=== PATIENT | female | born 1985 | race Hispanic/Latino ===

== ENCOUNTER 2021-11-19 13:35 | Emergency (ER) | payer SELFPAY ==
[2021-11-19] MEDS ORDERED: Acetaminophen 500 MG TAB ONE (14:07)
[2021-11-19 14:17] LABS: Bilirubin Neg (Negative); Blood, Urine 250 (Negative); Clarity Clear (Clear); Glucose, Urine (Dipstick) Normal (Negative); Ketone, Urine 15 mg/dL (Negative); Leukocyte 500 (Negative); Nitrite Negative (Negative); Protein, Urine (Dipstick) 15 mg/dl (Neg-Trace); Specific Gravity, Urine 1.015 (1.002-1.036); Urobilinogen Normal mg/dL (Less than 2)
[2021-11-19 14:47] LABS: Transitional Epithelial 0-3 HPF (None Seen)
[2021-11-19 14:48] LABS: Bacteria/HPF 1+ HPF (None Seen); Mucous/LPF 2+ LPF (<2+)
== END 2021-11-19 15:59 | disposition home or self-care (01) ==
LOC: CSHERS 13:35
DX: O23.41 Unspecified infection of urinary tract in pregnancy, first trimester (principal); N39.0 Urinary tract infection, site not specified; O99.281 Endocrine, nutritional and metabolic diseases complicating pregnancy, first trimester; E05.90 Thyrotoxicosis, unspecified without thyrotoxic crisis or storm; Z3A.01 Less than 8 weeks gestation of pregnancy
CPT/HCPCS: 36415; 81003; 81015; 84702; 86900; 86901

== ENCOUNTER 2022-07-10 09:21 | Inpatient (IN) | payer MEDICAID, SELFPAY ==
[2022-07-10] MEDS ORDERED: Oxytocin 10 UNITS/ML VIAL ONE (09:30)
[2022-07-10] MEDS ORDERED: Methylergonovine 0.2 MG/ML VIAL ONE (09:31)
[2022-07-10] MEDS ORDERED: Misoprostol 200 MCG TAB ONE (09:31)
[2022-07-10] MEDS ORDERED: Carboprost 250 MCG/ML AMP ONE (09:31)
[2022-07-10] MEDS ORDERED: NS w/ Oxytocin 30 units 500 ML ONE (09:57)
[2022-07-10] MEDS ORDERED: Diphenoxylate HCl/Atropine Tablet PO PRN (10:07)
[2022-07-10] MEDS ORDERED: Ondansetron PF 4 MG/2 ML Vial IVP PRN (10:07)
[2022-07-10] MEDS ORDERED: Misoprostol 200 MCG TAB PR PRN (10:07)
[2022-07-10] MEDS ORDERED: hydrALAZINE 20 MG/ML VIAL SLOW IVP PRN ×2 (10:07→11:04)
[2022-07-10] MEDS ORDERED: Lidocaine 1% (PF) 30 ML VIAL SC PRN (10:07)
[2022-07-10] MEDS ORDERED: Methylergonovine 0.2 MG/ML VIAL IM PRN (10:07)
[2022-07-10] MEDS ORDERED: Promethazine HCl 25 MG/ML VIAL IM PRN (10:07)
[2022-07-10] MEDS ORDERED: NS w/ Oxytocin 30 units 500 ML IV SCH (10:15)
[2022-07-10] MEDS ORDERED: Lactated Ringer's 1,000 ML IV SCH (10:15)
[2022-07-10 10:23] LABS: Hemoglobin 11.7 g/dL (12.0-15.5); Mean Corpuscular HGB CONC 33.8 g/dL (32.0-36.0); Mean Corpuscular Hemoglobin 27.6 pg (27.0-33.0); Mean Corpuscular Volume 81.6 fl (81.6-98.3); Mean Platelet Volume 12.2 fl (7.4-10.4); Platelet Count 196 10x3/uL (150-450); RBC Distribution Width 15.4 % (11.5-14.5); Red Blood Cell (RBC) Count 4.24 10x6/uL (3.90-5.03); White Blood Cell (WBC) Count 15.3 10x3/uL (3.5-10.5)
[2022-07-10] MEDS ORDERED: Lidocaine 1% (PF) 30 ML VIAL ONE (10:37)
[2022-07-10 10:54] LABS: HBSAg Index 0.16 S/CO (0-0.99); Hep B Surf Ag Non-Reactive S/CO (NonReactive)
[2022-07-10 10:55] LABS: Syphilis Antibody Nonreactive (Nonreactive); Syphilis Antibody Index 0.03 S/CO (<1.00 Non-Reactive)
[2022-07-10] MEDS ORDERED: Boostrix 0.5 ML (Tdap) VIAL (>/=7 yrs of age) IM ONE (11:04)
[2022-07-10] MEDS ORDERED: Bisacodyl 10 MG SUPP PR PRN (11:04)
[2022-07-10] MEDS ORDERED: Milk Of Magnesia 30 ML UDCUP PO PRN (11:04)
[2022-07-10 11:30] VITALS: BMI 32.0
[2022-07-10] MEDS: Acetaminophen 500 MG TAB PO PRN (11:49)
[2022-07-10 11:50] LABS: SARS-CoV-2 NAA Rapid Test Not Detected (NotDetected)
[2022-07-10] MEDS: Ibuprofen 800 MG TAB PO SCH ×2 (14:37→21:54)
[2022-07-10] MEDS: Ferrous Sulfate 325 MG TAB PO SCH (16:23)
[2022-07-10] MEDS: Docusate 100 MG CAP PO SCH (21:54)
[2022-07-11] MEDS: Acetaminophen 500 MG TAB PO PRN (00:30)
[2022-07-11 04:18] LABS: #Eosinphils 0.1 10x3/uL (0.0-0.5); #Monocytes 0.8 10x3/uL (0.0-1.1); #Neutrophils 7.8 10x3/uL (1.5-8.4); %Basophils 0.2 % (0.0-2.0); %Eosinophils 0.9 % (0.0-6.0); %Lymphocytes 24.8 % (18.0-47.0); %Monocytes 6.4 % (0.0-10.0); %Neutrophils 66.8 % (40.0-75.0); Hemoglobin 9.3 g/dL (12.0-15.5); Mean Corpuscular HGB CONC 33.5 g/dL (32.0-36.0); Mean Corpuscular Hemoglobin 27.4 pg (27.0-33.0); Mean Platelet Volume 11.8 fl (7.4-10.4); Platelet Count 155 10x3/uL (150-450); RBC Distribution Width 15.8 % (11.5-14.5); Red Blood Cell (RBC) Count 3.39 10x6/uL (3.90-5.03); White Blood Cell (WBC) Count 11.7 10x3/uL (3.5-10.5)
[2022-07-11] MEDS: Ibuprofen 800 MG TAB PO SCH ×2 (05:42→13:15)
[2022-07-11 07:19] VITALS: BP 125/75; TEMP 98.1
[2022-07-11] MEDS: Ferrous Sulfate 325 MG TAB PO SCH (08:37)
[2022-07-11] MEDS: Docusate 100 MG CAP PO SCH (08:37)
== END 2022-07-11 15:10 | disposition home or self-care (01) | DRG 806 ==
LOC: CSHLD/OP 09:21 → CSHLD 10:41 → CSHPP 14:15
PROVIDERS: ADMIT Obstetrics & Gynecology; ATTEND Obstetrics & Gynecology
PROC: 10E0XZZ Delivery of Products of Conception, External Approach (ICD-10-PCS; principal; 2022-07-10)
DX: O99.02 Anemia complicating childbirth (principal); O71.4 Obstetric high vaginal laceration alone; Z37.0 Single live birth; Z20.822 Contact with and (suspected) exposure to COVID-19; Z3A.39 39 weeks gestation of pregnancy; E66.9 Obesity, unspecified; O99.214 Obesity complicating childbirth; O69.81X0 Labor and delivery complicated by cord around neck, without compression, not applicable or unspecified; D50.8 Other iron deficiency anemias
CPT/HCPCS: 85025; 85027; 86780; 86850; 86900; 86901; 87340; 99285; J2001; J2210; J2590; J3490; U0002